=== PATIENT | male | born 1940 | race Caucasian/White ===

== ENCOUNTER 2016-09-15 14:43 | Emergency (ER) | payer OTHER ==
[~2016-09-15] VITALS: Ht 182.9 cm; Wt 120.6 kg
[~2016-09-15 14:43] MED LIST: ADVAIR 250/501 DISK IH; AMLODIPINE BESY10 MG PO; Advair 500/50 Diskus IH; DAILY VALUE1 EACH PO; FLORASTOR250 MG PO; GEMFIBROZIL600 MG PO; LANTUS 3 M100 UNITS1 SC; LEVEMIR100 UNIT/1 SQ; LEVOFLOXACIN750 MG PO; LISINOPRIL20 MG PO; LOPID600 MG PO; Levaquin PO; METRONIDAZOLE500 MG PO; MOBIC15 MG PO; NOVOLOG MI100 UNIT/4 SC; NOVOLOG MI100 UNIT/M SC; PREDNISONE10 MG PO; PROVENTIL,2.5 MG/0.5 AEROSOL; SIMVASTATIN PO; SPIRIVA RESPIMAT4 GM IH; SPIRIVA1 INHALATI IH; SYMBICORT60 INHALA1 IH; SYMBICORT60 INHALAT IH; SYNTHROID200 MCG PO; SYNTHROID75 MCG PO; VENTOLIN HFA18 GM IH; ZOCOR80 MG PO; advair; spiriva
[2016-09-15 16:02] LABS: ADD MIUA? YES; BILIRUBIN NEGATIVE; BLOOD SMALL; COLOR YELLOW ((YELLOW)); GLUCOSE (STRIP) 50; KETONES NEGATIVE; LEUKOCYTES NEGATIVE; NITRITE NEGATIVE; PROTEIN (STRIP) 100; SPECIFIC GRAVITY 1.013 (1.000-1.030); UROBILINOGEN 0.2 MG/DL (0.2-1.0)
[2016-09-15 16:05] LABS: BACTERIA NONE SEEN /HPF; EPITHELIAL CELLS RARE /HPF; MUCUS TRACE /LPF; RED BLOOD CELLS 15-20 /HPF (0-5); UCUL ADDED? NO; WHITE BLOOD CELLS 0-5 /HPF (0-5)
[2016-09-15 16:09] LABS: HEMATOCRIT 42.6 % (38.0-50.0); MCH 28.5 PG (29.0-34.0); MCHC 31.9 G/DL (30.0-36.0); MCV 89.3 FL (86-99); MEAN PLAT.VOLUME 9.1 uM^3 (9.0-12.4); PLATELET COUNT 191 K/uL (156-360); RBC DIS.WIDTH-CV 12.8 % (11.8-14.6); RBC DIS.WIDTH-SD 41.8 % (39-53); RED BLOOD COUNT 4.77 M/uL (4.00-5.50); WHITE BLOOD COUNT 16.3 K/uL (4.1-10.2)
[2016-09-15 16:18] LABS: CHLORIDE 103 mEq/L (99-109); POTASSIUM 4.8 mEq/L (3.7-5.4); SODIUM 139 mEq/L (136-147)
[2016-09-15 16:21] LABS: GLUCOSE 206 mg/dL (70-99)
[2016-09-15 16:22] LABS: ANION GAP 7 MEQ/L (2-14)
[2016-09-15 16:23] LABS: TOTAL BILIRUBIN 0.7 mg/dL (0.0-1.0)
[2016-09-15 16:24] LABS: ALKALINE PHOSPHATASE 120 IU/L (3-129); GFR ESTIMATE (CALCULATED) 52 mL/min/
[2016-09-15 16:25] LABS: UREA NITROGEN (BUN) 31 mg/dL (9-23)
[2016-09-15 20:00] VITALS: BP 146/65
== END 2016-09-15 20:27 | disposition home or self-care (01) ==
LOC: EME 14:43
PROVIDERS: Emergency Medicine
DX: R50.9 Fever, unspecified (principal); R10.11 Right upper quadrant pain; I10 Essential (primary) hypertension; E11.9 Type 2 diabetes mellitus without complications; Z79.4 Long term (current) use of insulin; J44.9 Chronic obstructive pulmonary disease, unspecified; J96.10 Chronic respiratory failure, unspecified whether with hypoxia or hypercapnia; Z99.81 Dependence on supplemental oxygen; E78.5 Hyperlipidemia, unspecified; E03.9 Hypothyroidism, unspecified; H54.42 Blindness, left eye, normal vision right eye; Z85.850 Personal history of malignant neoplasm of thyroid; F17.200 Nicotine dependence, unspecified, uncomplicated; Z90.49 Acquired absence of other specified parts of digestive tract
CPT/HCPCS: 74177; 80053; 81003; 83605; 85027; 99281; 99284; J1885; J7030

== ENCOUNTER 2016-09-21 10:13 | Inpatient (IN) | payer OTHER ==
[~2016-09-21] VITALS: Ht 182.9 cm; Wt 114.8 kg
[2016-09-21 11:07] LABS: HEMATOCRIT 33.6 % (38.0-50.0); MCH 29.1 PG (29.0-34.0); MCHC 32.7 G/DL (30.0-36.0); MCV 88.9 FL (86-99); MEAN PLAT.VOLUME 9.2 uM^3 (9.0-12.4); RBC DIS.WIDTH-CV 13.1 % (11.8-14.6); RBC DIS.WIDTH-SD 42.8 % (39-53); WHITE BLOOD COUNT 20.7 K/uL (4.1-10.2)
[2016-09-21 11:08] LABS: PLATELET COUNT 264 K/uL (156-360); RED BLOOD COUNT 3.78 M/uL (4.00-5.50)
[2016-09-21 11:18] LABS: CHLORIDE 101 mEq/L (99-109); POTASSIUM 3.9 mEq/L (3.7-5.4); SODIUM 135 mEq/L (136-147)
[2016-09-21 11:19] LABS: GLUCOSE 164 mg/dL (70-99)
[2016-09-21 11:21] LABS: ANION GAP 9 MEQ/L (2-14)
[2016-09-21 11:23] LABS: GFR ESTIMATE (CALCULATED) 57 mL/min/
[2016-09-21 11:24] LABS: UREA NITROGEN (BUN) 29 mg/dL (9-23)
[2016-09-21] MEDS ORDERED: LEVO-T50 MCG PO (13:40)
[2016-09-21] MEDS ORDERED: ZOCOR40 MG PO (13:41)
[2016-09-21 14:31] VITALS: BP 163/69
[2016-09-21 15:45] LABS: POINT-OF-CARE METER ID UU14162508
[2016-09-21 19:23] VITALS: BP 131/60
[2016-09-21 21:38] LABS: POINT-OF-CARE METER ID UU14162508
[2016-09-21 23:05] VITALS: BP 152/69
[2016-09-22 02:58] VITALS: BP 152/71
[2016-09-22 07:04] VITALS: BP 142/65
[2016-09-22 07:06] LABS: HEMATOCRIT 33.7 % (38.0-50.0); MCH 28.2 PG (29.0-34.0); MCHC 31.2 G/DL (30.0-36.0); MCV 90.3 FL (86-99); MEAN PLAT.VOLUME 9.3 uM^3 (9.0-12.4); PLATELET COUNT 305 K/uL (156-360); RBC DIS.WIDTH-CV 13.4 % (11.8-14.6); RBC DIS.WIDTH-SD 44.3 % (39-53); RED BLOOD COUNT 3.73 M/uL (4.00-5.50); WHITE BLOOD COUNT 13.6 K/uL (4.1-10.2)
[2016-09-22 07:28] LABS: ANION GAP 7 MEQ/L (2-14); CHLORIDE 103 MEQ/L (99-109); GFR ESTIMATE (CALCULATED) > 59 mL/min/; GLUCOSE 127 mg/dL (70-99); POTASSIUM 3.9 MEQ/L (3.7-5.4); SAMPLE HEMOLYSIS CHECK 0; SAMPLE ICTERIC CHECK 0; SAMPLE LIPEMIA CHECK 0; SODIUM 140 MEQ/L (136-147); UREA NITROGEN (BUN) 30 mg/dL (9-23)
[2016-09-22 08:40] LABS: BURR CELLS 1+; EOSINOPHIL ABS CT 0.5; EOSINOPHILS 3.4 % (0-5.0); INSTRUMENT ABS NEUTROPHIL CT 11.4 K/uL; LYMPHOCYTES 2.6 % (15.0-45.0); METAMYELOCYTES 0.9 %; MYELOCYTES 0.8 %; PLAT.SUFFICIENCY ADEQUATE
[2016-09-22 11:45] VITALS: BP 132/64
[2016-09-22 16:03] VITALS: BP 144/67
[2016-09-22 20:45] VITALS: BP 156/69
[2016-09-22 23:45] VITALS: BP 142/62
[2016-09-23 07:41] VITALS: BP 159/70
[2016-09-23 08:06] LABS: HEMATOCRIT 35.1 % (38.0-50.0); MCH 28.8 PG (29.0-34.0); MCHC 31.6 G/DL (30.0-36.0); MCV 90.9 FL (86-99); PLATELET COUNT 329 K/uL (156-360); RBC DIS.WIDTH-CV 13.5 % (11.8-14.6); RBC DIS.WIDTH-SD 45.7 % (39-53); RED BLOOD COUNT 3.86 M/uL (4.00-5.50); WHITE BLOOD COUNT 11.1 K/uL (4.1-10.2)
[2016-09-23 08:35] LABS: ANION GAP 9 MEQ/L (2-14); CHLORIDE 104 MEQ/L (99-109); GFR ESTIMATE (CALCULATED) > 59 mL/min/; GLUCOSE 131 mg/dL (70-99); MAGNESIUM 2.1 mg/dl (1.3-2.7); POTASSIUM 4.1 MEQ/L (3.7-5.4); SAMPLE HEMOLYSIS CHECK 0; SAMPLE ICTERIC CHECK 0; SAMPLE LIPEMIA CHECK 0; SODIUM 142 MEQ/L (136-147); UREA NITROGEN (BUN) 26 mg/dL (9-23)
[2016-09-23 08:48] LABS: ABS NEUTROPHIL COUNT 8.9; BAND NEUTROPHILS 0.9 % (0-8.0); EOSINOPHIL ABS CT 1.1; EOSINOPHILS 9.6 % (0-5.0); INSTRUMENT ABS NEUTROPHIL CT 8.2 K/uL; LYMPHOCYTES 5.3 % (15.0-45.0); METAMYELOCYTES 0.9 %; PLAT.SUFFICIENCY ADEQUATE; SEG.NEUTROPHILS 78.9 % (46.0-76.0)
[2016-09-23 15:37] VITALS: BP 131/60
[2016-09-23 22:01] LABS: POINT-OF-CARE METER ID UU14208750
[2016-09-23 23:55] VITALS: BP 150/65
[2016-09-24 06:23] LABS: POINT-OF-CARE METER ID UU14208750
[2016-09-24 07:39] LABS: INTERNAL CONTROL VALID? YES
[2016-09-24 07:48] VITALS: BP 140/63
[2016-09-24 11:21] LABS: POINT-OF-CARE METER ID UU14208750
[2016-09-24] MEDS ORDERED: KEFLEX500 MG PO (11:41)
[2016-09-24] MEDS ORDERED: ENDOCET 5-3251 EACH PO (11:41)
[2016-09-24 15:50] VITALS: BP 149/69
[2016-09-24 16:15] LABS: POINT-OF-CARE METER ID UU14208750
== END 2016-09-24 17:00 | DRG 190 ==
LOC: EME 10:13 → 2EAST 12:17 → EDOF 12:17 → 2EAST 14:08
PROVIDERS: Emergency Medicine; Hospitalist; Internal Medicine
DX: J44.0 Chronic obstructive pulmonary disease with (acute) lower respiratory infection (principal); J18.9 Pneumonia, unspecified organism; J96.11 Chronic respiratory failure with hypoxia; L03.116 Cellulitis of left lower limb; G89.29 Other chronic pain; E11.65 Type 2 diabetes mellitus with hyperglycemia; F17.210 Nicotine dependence, cigarettes, uncomplicated; D64.9 Anemia, unspecified; E03.9 Hypothyroidism, unspecified; E78.5 Hyperlipidemia, unspecified; H54.42 Blindness, left eye, normal vision right eye; I10 Essential (primary) hypertension; I89.0 Lymphedema, not elsewhere classified; I89.1 Lymphangitis; J44.1 Chronic obstructive pulmonary disease with (acute) exacerbation; M16.0 Bilateral primary osteoarthritis of hip; R32 Unspecified urinary incontinence; M79.662 Pain in left lower leg; M79.661 Pain in right lower leg; E66.9 Obesity, unspecified; Z68.34 Body mass index [BMI] 34.0-34.9, adult; Z99.81 Dependence on supplemental oxygen; Z97.0 Presence of artificial eye; Z85.850 Personal history of malignant neoplasm of thyroid; Z90.79 Acquired absence of other genital organ(s); Z79.51 Long term (current) use of inhaled steroids; Z79.4 Long term (current) use of insulin
CPT/HCPCS: 71010; 72170; 73502; 80048; 81003; 82948; 83605; 83735; 85025; 85027; 87040; 87070; 87205; 87449; 94640; 94640 76; 94799; 99202; 99281; 99285; G8978 GP CJ; G8979 GP CI; J0456; J0696; J1650; J1815; J3370; J7050

== ENCOUNTER 2017-10-19 09:56 | Day surgery (SDC) | payer OTHER ==
[~2017-10-19] VITALS: Ht 182.9 cm; Wt 110.0 kg
[~2017-10-19 09:56] MED LIST changes: +ENDOCET 5-3251 EACH PO; +KEFLEX500 MG PO; +LEVO-T50 MCG PO; +ZOCOR40 MG PO
[2017-10-19 15:41] VITALS: BP 161/72
[2017-10-19 19:10] VITALS: BP 150/76
[2017-10-19 23:09] VITALS: BP 154/71
[2017-10-20 03:22] VITALS: BP 142/67
[2017-10-20 05:53] LABS: BASOPHIL (%) 0.4 % (0-1); EOSINOPHIL (%) 6.5 % (0-5); EOSINOPHIL COUNT 0.6 K/uL (0-0.3); HEMATOCRIT 37.9 % (38.0-50.0); HEMOGLOBIN 12.1 G/DL (12.5-16.6); IMMATURE GRANULOCYTE (%) 0.3 % (0.0-0.7); MCH 28.5 PG (29.0-34.0); MCHC 31.9 G/DL (30.0-36.0); MCV 89.2 FL (86-99); MONOCYTE (%) 9.2 % (3-12); MONOCYTE COUNT 0.8 K/uL (0-0.8); NEUTROPHIL (%) 72.6 % (45-76); NEUTROPHIL COUNT 6.5 K/uL (1.8-6.4); PLATELET COUNT 184 K/uL (156-360); RBC DIS.WIDTH-CV 12.6 % (11.8-14.6); RBC DIS.WIDTH-SD 41.5 % (39-53); RED BLOOD COUNT 4.25 M/uL (4.00-5.50); WHITE BLOOD COUNT 8.9 K/uL (4.1-10.2)
[2017-10-20 06:15] LABS: CHLORIDE 103 MEQ/L (99-109); CREATININE 1.1 MG/DL (0.6-1.3); GFR ESTIMATE (CALCULATED) > 59 mL/min/ (58.99-99999); GLUCOSE 60 mg/dL (70-99); POTASSIUM 4.3 MEQ/L (3.7-5.4); SODIUM 141 MEQ/L (136-147); UREA NITROGEN (BUN) 22 mg/dL (9-23)
[2017-10-20 07:13] VITALS: BP 156/74
[2017-10-20 11:34] VITALS: BP 154/75
[2017-10-20] MEDS ORDERED: NITROSTAT0.4 MG SL (12:29)
[2017-10-20] MEDS ORDERED: CLOPIDOGREL75 MG PO (12:29)
[2017-10-20] MEDS ORDERED: ASPIRIN EC325 MG PO (12:29)
== END 2017-10-20 13:35 | disposition home or self-care (01) ==
LOC: CATH 09:56 → 2SOUTH 12:30 → 4EAST 12:30 → 2SOUTH 15:09 → 4EAST 15:12
PROVIDERS: Internal Medicine Cardiovascular Disease
PROC: 4A023N7 Measurement of Cardiac Sampling and Pressure, Left Heart, Percutaneous Approach (ICD-10-PCS; principal; 2017-10-19)
PROC: B2111ZZ Fluoroscopy of Multiple Coronary Arteries using Low Osmolar Contrast (ICD-10-PCS; principal; 2017-10-19)
PROC: B241ZZ3 Ultrasonography of Multiple Coronary Arteries, Intravascular (ICD-10-PCS; principal; 2017-10-19)
PROC: 4A033BC Measurement of Arterial Pressure, Coronary, Percutaneous Approach (ICD-10-PCS; principal; 2017-10-19)
DX: I25.10 Atherosclerotic heart disease of native coronary artery without angina pectoris (principal); J44.9 Chronic obstructive pulmonary disease, unspecified; I10 Essential (primary) hypertension; E78.5 Hyperlipidemia, unspecified; E11.51 Type 2 diabetes mellitus with diabetic peripheral angiopathy without gangrene; I11.9 Hypertensive heart disease without heart failure; I27.20 Pulmonary hypertension, unspecified; I45.2 Bifascicular block; Z79.4 Long term (current) use of insulin; Z79.02 Long term (current) use of antithrombotics/antiplatelets
CPT/HCPCS: 80048; 82948; 85025; 85347; 93005; 94799; C1725; C1769; C1874; C1887; G0378; J0153; J0583; J1644; J2250; J3010; J7050